=== PATIENT | male | born 1955 | race African-American/Black ===

== ENCOUNTER → 2020-03-29 | Outpatient (CLI) | payer OTHER ==
[~2020-03-29] MED LIST: B-125000 MC1; CHLORTHALIDONE25 MG; D3-200050 MCG; DULOXETINE HCL20 MG PO; JARDIANCE25 MG PO; METFORMIN HCL500 M3 PO; NORVASC 2.5 MG2.5 M1 PO
== END ==
LOC: M.PC 09:00
PROVIDERS: ATTEND Physical Medicine & Rehabilitation
DX: M50.10 Cervical disc disorder with radiculopathy, unspecified cervical region (principal); M79.601 Pain in right arm